=== PATIENT | female | born 2000 | race Caucasian/White ===

== ENCOUNTER 2018-09-04 20:45 | Emergency (ER) | payer BC, MEDICAID ==
--- NOTE | 2018-09-04 20:56 | EDM.PDOC ---
ED HPI GENERAL MEDICAL PROBLEM - General Chief Complaint: Genitourinary Problem Stated Complaint: STD Time Seen by Provider: 09/04/18 20:55 Source of Information: Reports: Patient History Limitations: Reports: No Limitations - History of Present Illness INITIAL COMMENTS - FREE TEXT/NARRATIVE: HISTORY AND PHYSICAL: History of present illness: Patient is a 17-year-old female who presents to the emergency room with complaints of painful lesions to her labia. She states she took a picture and was concerned that it look like herpes. States she is in a monogamous relationship for several years and has not had any other partners. Denies any vaginal discharge or concerns of other STDs. Patient denies any fever, chills, headache, change in vision, syncope or near syncope. Denies any chest pain, back pain, shortness of breath or cough. Denies any abdominal pain, nausea, vomiting, diarrhea, constipation or dysuria. Has not noted any blood in urine or stool. Patient has been eating and drinking appropriately. Review of systems: As per history of present illness and below otherwise all systems reviewed and negative. Past medical history: As per history of present illness and as reviewed below otherwise noncontributory. Surgical history: As per history of present illness and as reviewed below otherwise noncontributory. Social history: See social history for further information Family history: As per history of present illness and as reviewed below otherwise noncontributory. Physical exam: General: Well-developed and well-nourished 17-year-old female. Alert and oriented. Nontoxic appearing and in no acute distress. HEENT: Atraumatic, normocephalic, pupils equal and reactive bilaterally, negative for conjunctival pallor or scleral icterus, mucous membranes moist, TMs normal bilaterally, throat clear, neck supple, nontender, trachea midline. No drooling or trismus noted. No meningeal signs. No hot potato voice noted. Lungs: Clear to auscultation, breath sounds equal bilaterally, chest nontender. Heart: S1S2, regular rate and rhythm without overt murmur Abdomen: Soft, nondistended, nontender. Negative for masses or hepatosplenomegaly. Negative for costovertebral tenderness. Pelvis: Stable nontender. Genitourinary: This was done with consent and a clinical project assistant at the bedside. She does have a small ulceration approximately 3 mm oblong faint to visualizing to the left lower labia minora. She states this is very painful to touch. No vaginal discharge noted in the vault. No cervical motion tenderness. Otherwise normal exam. Rectal: Deferred. Skin: See exam. Otherwise skin is intact, warm, dry. No lesions or rashes noted. Extremities: Atraumatic, moves all extremities per self without difficulty or deficits, negative for cords or calf pain. Neurovascular unremarkable. Neuro: Awake, alert, oriented. Cranial nerves II through XII unremarkable. Cerebellum unremarkable. Motor and sensory unremarkable throughout. Exam nonfocal. Notes: I did obtain a culture of the ulceration on the labia. Appears like it may be an early herpic lesion or haemophilus ducreyi. Patient is aware that the diagnostics are send out and we will not get results on these for several days. I am getting give her dose of Rocephin and azithromycin while here. Supportive care measures were reviewed and discussed. Voices understanding and is agreeable to plan of care. Denies any further questions or concerns at this time. Diagnostics: Herpes Culture, UA, Gonorrhea/Chlamydia Therapeutics: Rocephin, Zithromax Prescription: Lidocaine cream Macrobid Impression: Genital ulcer UTI Plan: 1. You may apply the topical lidocaine ointment sparingly to the painful areas. 2. Please refrain from sexual activity until you're results have returned. 3. Many of the lab tests you had done today are send outs and we will not get these results for several days. 4. Follow-up with your primary care or OBGYN as we discussed. Return to the ED as needed and as discussed. Definitive disposition and diagnosis as appropriate pending reevaluation and review of above. urinary Pain Score (Numeric/FACES): 10 - Related Data Allergies Allergy/AdvReac Type Severity Reaction Status Date / Time No Known Allergies Allergy Verified 09/04/18 20:58 Home Meds: Home Meds Lidocaine 1 dose TP Q4HR PRN #1 oint...g. 09/04/18 [Rx] ED ROS GENERAL - Review of Systems Review Of Systems: ROS reveals no pertinent complaints other than HPI. ED EXAM, RENAL/ - Physical Exam Exam: See Below (See dictation) Course - Vital Signs Last Recorded V/S: Last Vital Signs Temp 95.9 F 09/04/18 20:56 Pulse 104 H 09/04/18 20:56 Resp 18 09/04/18 20:56 BP 168/96 H 09/04/18 20:56 Pulse Ox 96 09/04/18 20:56 - Orders/Labs/Meds Orders: Active Orders 24 hr Category Date Time Status CHLAMYDIA AND GONORRHEA BY TMA Stat Lab 09/04/18 21:10 Received CULTURE URINE [RM] Stat Lab 09/04/18 21:10 Received HSV AMPLIFIED MOLECULAR [MREF] Stat Lab 09/04/18 21:05 Received Labs: Laboratory Tests 09/04/18 Range/Units 21:10 Urine Color YELLOW Urine Appearance SLT CLOUDY Urine pH 7.0 (5.0-8.0) Ur Specific [place] 1.015 (1.001-1.035) Urine Protein NEGATIVE (NEGATIVE) mg/dL Urine Glucose (UA) NEGATIVE (NEGATIVE) mg/dL Urine Ketones NEGATIVE (NEGATIVE) mg/dL Urine Occult Blood SMALL H (NEGATIVE) Urine Nitrite NEGATIVE (NEGATIVE) Urine Bilirubin NEGATIVE (NEGATIVE) Urine Urobilinogen 0.2 (<2.0) EU/dL Ur Leukocyte Esterase SMALL H (NEGATIVE) Urine RBC 0-2 (0-2/HPF) Urine WBC 12-15 (0-5/HPF) Ur Epithelial Cells MANY (NONE-FEW) Urine Bacteria FEW (NEGATIVE) Meds: Medications Discontinued Medications Generic Name Dose Route Start Last Admin Trade Name Gerardq PRN Reason Stop Dose Admin Azithromycin 1,000 mg 09/04/18 21:10 Zithromax PO 09/04/18 21:11 NOW STA Ceftriaxone Sodium 250 mg/ 1 mls @ 1 mls/sec 09/04/18 21:10 Lidocaine HCl IM 09/04/18 21:11 ONETIME ONE Lidocaine HCl 2 ml 09/04/18 21:10 Xylocaine-Mpf 1% INJECT 09/04/18 21:11 ONETIME ONE Departure - Departure Time of Disposition: 21:27 Disposition: Home, Self-Care 01 Clinical Impression: Genital ulcer, female, UTI, Urinary tract infectious disease - Discharge Information Prescriptions: Lidocaine 1 dose TP Q4HR PRN #1 oint...g. PRN Reason: Pain Instructions: Urinary Tract Infection, Adult, [id number] Referrals: PCP,None [Primary Care Provider] - Forms: ED Department Discharge Additional Instructions: The following information is given to patients seen in the emergency department who are being discharged to home. This information is to outline your options for follow-up care. We provide all patients seen in our emergency department with a follow-up referral. The need for follow-up, as well as the timing and circumstances, are variable depending upon the specifics of your emergency department visit. If you don't have a primary care physician on staff, we will provide you with a referral. We always advise you to contact your personal physician following an emergency department visit to inform them of the circumstance of the visit and for follow-up with them and/or the need for any referrals to a consulting specialist. The emergency department will also refer you to a specialist when appropriate. This referral assures that you have the opportunity for follow-up care with a specialist. All of these measure are taken in an effort to provide you with optimal care, which includes your follow-up. Under all circumstances we always encourage you to contact your private physician who remains a resource for coordinating your care. When calling for follow-up care, please make the office aware that this follow-up is from your recent emergency room visit. If for any reason you are refused follow-up, please contact the [facility] Emergency Department at and asked to speak to the emergency department charge nurse. [facility] [address] [place] [id number] [place] [address] 1. You may apply the topical lidocaine ointment sparingly to the painful areas. 2. Please refrain from sexual activity until you're results have returned. 3. Many of the lab tests you had done today are send outs and we will not get these results for several days. 4. Follow-up with your primary care or OBGYN as we discussed. Return to the ED as needed and as discussed. - My Orders Last 24 Hours: My Active Orders 09/04/18 21:05 HSV AMPLIFIED MOLECULAR [MREF] Stat 09/04/18 21:10 CHLAMYDIA AND GONORRHEA BY TMA Stat CULTURE URINE [RM] Stat - Assessment/Plan Last 24 Hours: My Active Orders 09/04/18 21:05 HSV AMPLIFIED MOLECULAR [MREF] Stat 09/04/18 21:10 CHLAMYDIA AND GONORRHEA BY TMA Stat CULTURE URINE [RM] Stat
[2018-09-04] MEDS ORDERED: cefTRIAXone 250 MG in Lidocaine 1% 1 ML IM ONE (21:10)
[2018-09-04] MEDS ORDERED: Lidocaine 1% PF 2 ML SDV INJECT ONE (21:10)
[2018-09-04] MEDS ORDERED: Azithromycin 250 MG Tab PO STA (21:10)
== END 2018-09-04 21:50 | disposition home or self-care (01) ==
LOC: MW.ED 20:45
DX: N39.0 Urinary tract infection, site not specified (principal); N76.6 Ulceration of vulva
CPT/HCPCS: 81001; 87086; 87491; 87529; 87591; 96372; 99283; A9270; J0696; J2001